=== PATIENT | female | born 1955 | race African-American/Black ===

== ENCOUNTER → 2018-08-26 | Outpatient (CLI) | payer OTHER ==
--- NOTE | 2018-08-26 08:12 | RAD ---
Thyroid ultrasound August 26, 2018 INDICATION: Hypercalcemia. COMPARISON: None available TECHNIQUE: Sonographic evaluation of the thyroid gland was performed utilizing grayscale and color Doppler. FINDINGS: The right thyroid lobe measures 4.2 x 1.2 x 1.2 cm. No suspicious thyroid nodules. There is no significant hyperemia. There is homogeneous echotexture of the thyroid parenchyma. Thyroid isthmus measures 6 mm. Left thyroid lobe measures 4.1 x 1.4 x 1.3 cm. Parenchyma is homogeneous without significant hyperemia. There is a ill-defined 12 x 10 x 8 mm hyperechoic mass which is wider than it is tall with coarse calcification. IMPRESSION: 1. 12 mm moderately suspicious nodule junction of the left thyroid lobe and thyroid isthmus. Recommend one-year follow-up thyroid ultrasound to assess stability. Recommend fine-needle aspiration if greater than 1.5 cm. Electronically signed by: Sammi Dyson MD (08/26/2018 8:09 AM) [facility]
== END | disposition home or self-care (01) ==
LOC: US 06:35
PROVIDERS: ATTEND Family Medicine
DX: E04.1 Nontoxic single thyroid nodule (principal)
CPT/HCPCS: 76536

== ENCOUNTER → 2018-11-05 | Outpatient (CLI) | payer OTHER ==
--- NOTE | 2018-11-05 09:31 | RAD ---
Examination: US GUID NDL PLACE/ASPI/BX History: Left thyroid lobe-isthmus nodule. Comparison/Correlation: 08/26/2018 thyroid ultrasound exam Findings: Risks and benefits of thyroid nodule fine-needle aspiration by ultrasound guidance were discussed with the patient and informed consent was obtained. Preliminary ultrasound imaging was performed. Lateral approach was utilized. Cleansing with ChloraPrep was performed. Sterile drapes placed. Sterile gel and sterile probe cover were utilized. 10 cc 1 percent lidocaine was administered. A total of 4 needles each with its on syringe were utilized for passes into the left thyroid lobe-isthmus nodule of interest. Samples were provided to the lab engineer who stated that they are adequate. The patient tolerated procedure well without immediate complications. Impression: Successful left thyroid lobe and isthmus nodule fine-needle aspiration. Electronically signed by: Srikanth Moreno MD (11/05/2018 9:28 AM) [facility]
--- NOTE | 2018-11-10 16:06 | PATHOLOGY ---
Note [facility] Accession Number: [id number] TESTS RESULT FLAG UNITS REF RANGE LAB Clinician Provided Cytology Information C6 Unknown Storage/container code(s) Source: LT ISTHMUS THYROID DIAGNOSIS: LT ISTHMUS THYROID NEGATIVE FOR MALIGNANT CELLS. BETHESDA CATEGORY II. SPECIMEN CONSISTS OF ABUNDANT BENIGN FOLLICULAR CELLS, HEMOSIDERIN-LADEN MACROPHAGES, SCANT COLLOID AND BLOOD. THE PATTERN IS CONSISTENT WITH ADENOMATOID NODULE. COLLOID IS PRESENT. THIS INTERPRETATION INCLUDES EVALUATION OF A CELL BLOCK. Pathologist ICD10: 02 E04.1 Signed out by: Pascual Dumont MD, Pathologist NPI- [id number] Performed by: Charisma Beaulieu, Histotechnologist ([facility]) Gross description: 30ML, RED, CLOUDY /LCS 02/25/1840 0000 Local FLAG LEGEND: L-Low Normal,H-High Normal,LL-Alert Low,HH-Alert High <-Panic Low,>-Panic High,A-Abnormal,AA-Critical Abnormal Performed at: [id number] [address] [place] [address] Jose M Bro MD, [address] [facility] [address] [address] Ana Franco MD, Specimen Comment: A courtesy copy of this report has been sent to Specimen Comment: [phone], , . Specimen Comment: Report sent to ,DR LYON / DR GARCES Specimen Comment: A duplicate report has been generated due to demographic updates. Performed at: [address] [facility] [id number] [facility] [address], [place], [place] [id number] MD Jose M Bro MD Phone: [phone]
== END | disposition home or self-care (01) ==
LOC: US 11:35
PROVIDERS: ATTEND Specialist
DX: E04.1 Nontoxic single thyroid nodule (principal)
CPT/HCPCS: 60300; 76942; 88173; 88305